=== PATIENT | female | born 1970 | race African-American/Black ===

== ENCOUNTER 2018-05-15 15:58 | Emergency (ER) | payer MEDICAID ==
[~2018-05-15] VITALS: Ht 172.7 cm; Wt 64.5 kg
[~2018-05-15 15:58] MED LIST: BACI3.5O2 RIGHTEYE; GABA-532 PO
[2018-05-15 16:20] VITALS: BP 107/74
== END 2018-05-15 17:55 | disposition home or self-care (01) ==
LOC: ER 15:59
DX: S82.832A Other fracture of upper and lower end of left fibula, initial encounter for closed fracture (principal); G89.29 Other chronic pain; F12.90 Cannabis use, unspecified, uncomplicated; F15.90 Other stimulant use, unspecified, uncomplicated; Z88.0 Allergy status to penicillin; Z79.899 Other long term (current) drug therapy; Z59.0 Homelessness; Z60.2 Problems related to living alone; X50.1XXA Overexertion from prolonged static or awkward postures, initial encounter; Y93.89 Activity, other specified; Y92.89 Other specified places as the place of occurrence of the external cause; Y99.8 Other external cause status
CPT/HCPCS: 73610; 99283

== ENCOUNTER 2019-05-08 16:31 | Emergency (ER) | payer MEDICAID ==
[~2019-05-08] VITALS: Ht 180.3 cm; Wt 58.3 kg
[2019-05-08 17:04] VITALS: BP 123/89
[2019-05-08] MEDS ORDERED: ibuprofen tablet 400 MG TABLET PO ONE (17:45)
== END 2019-05-08 17:59 | disposition home or self-care (01) ==
LOC: ER 16:32
DX: M25.572 Pain in left ankle and joints of left foot (principal); R60.0 Localized edema; G89.29 Other chronic pain; F12.90 Cannabis use, unspecified, uncomplicated; F15.90 Other stimulant use, unspecified, uncomplicated; F17.200 Nicotine dependence, unspecified, uncomplicated; Z59.0 Homelessness; Z87.440 Personal history of urinary (tract) infections; Z88.0 Allergy status to penicillin
CPT/HCPCS: 99282; 99283